=== PATIENT | male | born 1995 | race Two or more races ===

== ENCOUNTER 2020-04-09 09:25 | Outpatient (CLI) | payer OTHER | END 2020-04-09 09:32 | disposition home or self-care (01) | LOC: SONOGRAMA 09:25 | PROVIDERS: ATTEND Physical Medicine & Rehabilitation Hospice and Palliative Medicine | DX: S76.312A Strain of muscle, fascia and tendon of the posterior muscle group at thigh level, left thigh, initial encounter (principal); S76.212A Strain of adductor muscle, fascia and tendon of left thigh, initial encounter ==